=== PATIENT | female | born 1960 | race Caucasian/White ===

== ENCOUNTER 2024-07-07 11:16 | Emergency (ER) | payer BC ==
[~2024-07-07] VITALS: Ht 165.1 cm; Wt 60.8 kg
[2024-07-07 11:16] VITALS: BP_SYST 129; PULSE 70; RESP 18; TEMP 98.2; O2SAT 98
[2024-07-07] MEDS: ASPIRIN 81 MG TAB.CHEW PO ONE (12:15)
[2024-07-07] MEDS: MECLIZINE HCL 25 MG TABLET (ANITVERT) PO ONE (12:15)
[2024-07-07] MEDS: NACL 0.9% 1,000 ML IV ONE (12:36)
[2024-07-07 12:46] LABS: BASOPHILS # (AUTO) 0.1 K/uL (0.0-0.2); BASOPHILS % (AUTO) 0.9 % (0.0-2.0); EOSINOPHILS # (AUTO) 0.3 K/uL (0.0-0.4); HEMATOCRIT 36.2 % (36-48); HEMOGLOBIN 12.3 g/dL (12.0-16.0); LYMPHOCYTES # (AUTO) 1.9 K/uL (1.0-5.5); LYMPHOCYTES % (AUTO) 32.8 % (20.5-51.5); MEAN CORPUSCULAR HEMOGLOBIN 30 pg (27-31); MEAN CORPUSCULAR HGB CONC 34 % (32-36); MEAN CORPUSCULAR VOLUME 88 fL (79.0-98.0); MONOCYTES # (AUTO) 0.6 K/uL (0.0-1.0); MONOCYTES % (AUTO) 10.4 % (1.7-9.3); NEUTROPHILS % (AUTO) 50.9 % (40.0-70.0); PLATELET COUNT (AUTO) 225 K/uL (130-430); RED BLOOD CELL COUNT(AUTO) 4.11 MIL/uL (4.2-6.2); RED CELL DISTRIBUTION WIDTH 14.5 % (9.0-15.0); WHITE BLOOD COUNT (AUTO) 5.9 K/uL (4.8-10.8)
[2024-07-07 13:34] LABS: ANION GAP 12 (5-15); CALCIUM 8.8 mg/dL (8.4-11.0); CARBON DIOXIDE 26 mmol/L (23-29); CHLORIDE 101 mmol/L (98-107); CREATINE KINASE, TOTAL 173 U/L (26-192); CREATININE 1.11 mg/dL (0.55-1.30); GFR AFRICAN AMERICAN 64 mL/min (>90); GLUCOSE 99 mg/dL (74-106); POTASSIUM 3.2 mmol/L (3.5-5.1); SODIUM SERUM 139 mmol/L (136-145); UREA NITROGEN, BLOOD 33 mg/dL (8-21)
[2024-07-07 13:35] LABS: GFR NON AFRICAN-AMERICAN 53 mL/min (>90)
[2024-07-07] MEDS: POTASSIUM CHLORIDE 20 MEQ/PKT PACKET PO ONE (16:17)
== END 2024-07-07 16:22 | disposition home or self-care (01) ==
LOC: SED 11:16
DX: R42 Dizziness and giddiness (principal); E87.6 Hypokalemia; R51.9 Headache, unspecified; I10 Essential (primary) hypertension
CPT/HCPCS: 99285; 96360; 70450; 71045; 80048; 82550; 83880; 85025; 84484; 36415; 93005; J7030; J8597